=== PATIENT | male | born 1960 | race Caucasian/White ===

== ENCOUNTER 2017-10-13 08:46 | Emergency (ER) | payer BC ==
[~2017-10-13] VITALS: Ht 175.3 cm; Wt 121.6 kg
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
[2017-10-13] MEDS ORDERED: HYDROMORPHONE INJ 2 MG/ML DISP.SYRIN IM ONE (10:30)
[2017-10-13] MEDS ORDERED: HYDROMORPHONE INJ 2 MG/ML DISP.SYRIN ONE (10:47)
[2017-10-13 13:41] VITALS: BP 138/85
--- NOTE | 2017-10-13 13:42 | NUR ---
Patient discharged to home in stable condition. Written and verbal after care instructions given. Patient verbalizes understanding of instruction.
== END 2017-10-13 13:45 | disposition home or self-care (01) ==
LOC: ER 08:47
DX: S39.92XA Unspecified injury of lower back, initial encounter (principal); M54.5 Low back pain; M54.6 Pain in thoracic spine; M54.2 Cervicalgia; E11.9 Type 2 diabetes mellitus without complications; V43.52XA Car driver injured in collision with other type car in traffic accident, initial encounter; Y93.89 Activity, other specified; Y92.410 Unspecified street and highway as the place of occurrence of the external cause; Y99.8 Other external cause status
CPT/HCPCS: 72125-TC; 72128-TC; 72131-TC; A4606; J1170; Z7610